=== PATIENT | female | born 1960 | race Two or more races ===

== ENCOUNTER 2025-02-02 18:35 | Emergency (ER) | payer OTHER ==
[~2025-02-02] VITALS: Ht 162.6 cm; Wt 90.7 kg
[2025-02-02] MEDS ORDERED: GLIMEPIRIDE2 MG PO (18:42)
[2025-02-02] MEDS ORDERED: ZESTORETIC 10-1 EACH PO (18:42)
[2025-02-02] MEDS ORDERED: LEVOXYL125 MCG PO (18:43)
[2025-02-02] MEDS ORDERED: AMLODIPINE-OLM1 EAC2 PO (18:43)
[2025-02-02] MEDS ORDERED: 0.9 % SODIUM CHLORIDE 1,000 ML IV ONE (19:45)
[2025-02-02] MEDS ORDERED: FAMOtidine 10 MG/ML (4ML VIAL) IV ONE (19:45)
[2025-02-02] MEDS ORDERED: NIFEDIPINE 10 MG CAPSULE PO ONE ×2 (19:45→21:01)
[2025-02-02] MEDS ORDERED: FAMOTIDINE/PF 20 MG/2 ML VIAL ONE (21:01)
[2025-02-02 21:46] LABS: URINE APPEARANCE Clear; URINE BILIRRUBIN Negative (NEGATIVE); URINE BLOOD Negative; URINE COLOR Yellow; URINE GLUCOSE Negative (NEGATIVE); URINE KETONE Negative (NEGATIVE); URINE LEUKOCYTE Moderate; URINE NITRATE Negative; URINE PROTEIN Negative (NEGATIVE); URINE UROBILINOGEN 0.2 E.U./dl
[2025-02-02 21:49] LABS: HEMATOCRIT 39.1 % (36.0-45.00); HEMOGLOBIN 12.7 g/dL (12.0-15.00); MEAN CORPUSCULAR HGB CONC 32.5 g/dl (32.0-36.0); PLATELET COUNT 267 K/uL (150-450); RED BLOOD COUNT 5.08 M/uL (4.00-6.00); RED CELL DISTRIBUTION WIDTH 14.9 % (11.5-14.5)
[2025-02-02 21:50] LABS: URINE BACTERIA 248.3 uL (0.0-1933); URINE EPITHELIAL CELLS 20.2 uL (0.0-38.8); URINE RBC 5.4 uL (0.0-20.8); URINE WBC 47.1 uL (0.0-23.2)
[2025-02-02 22:19] LABS: ALBUMIN 3.6 gm/dL (3.4-5.0); BILIRUBIN TOTAL 0.3 mg/dL (0.3-1.2); CALCIUM 8.9 mg/dL (8.5-10.1); CREATININE SERUM 0.59 mg/dL (0.55-1.02); GFR 101.67; GLOBULINA 3.3 G/DL (2.4-3.5); POTASSIUM 4.59 mEq/L (3.5-5.1); TOTAL PROTEIN 6.9 gm/dL (6.4-8.2); TSH 2.26 uIU/mL (0.358-3.74)
== END 2025-02-02 23:05 | disposition home or self-care (01) ==
LOC: ER 18:36
PROVIDERS: General Practice
DX: R42 Dizziness and giddiness (principal); I10 Essential (primary) hypertension; E03.8 Other specified hypothyroidism; E11.9 Type 2 diabetes mellitus without complications
CPT/HCPCS: 36415; 71045; 93005; 96365; 96366; 99283; J3490; J7030